=== PATIENT | male | born 1975 | race Caucasian/White ===

== ENCOUNTER 2018-01-30 14:25 | Emergency (ER) | payer OTHER ==
[2018-01-30 14:49] VITALS: BMI 23.6
--- NOTE | 2018-01-30 14:49 | PDOC ---
Rapid Medical Evaluation Time Seen by Provider: 01/30/18 14:43 Medical Evaluation: Allergies Allergy/AdvReac Type Severity Reaction Status Date / Time No Known Allergies Allergy Verified 12/18/15 21:50 01/30/18 14:44 Pt presents to the ED with one episode of BRBPR approximately one hour ago. Pt states he was straining to use the restroom earlier today. Admits to generalized abdominal pain, rectal discomfort. Pt states he last had a normal bowel movement yesterday. Admits to nausea. Denies fevers, chills, vomiting, diarrhea, hx of hemorrohoids Exam: Ambulatory, AAOx3, breathing easily Orders: CBC, CMP, UA, PT/INR, Type & Screen, UC Pt to proceed to ED for further evaluation Discharge Disposition - Diagnosis Blood in stool - Referrals - Patient Instructions - Post Discharge Activity
--- NOTE | 2018-01-30 15:03 | PDOC ---
History of Present Illness - General Chief Complaint: Rectal Bleed Stated Complaint: STOMACH PAIN Time Seen by Provider: 01/30/18 14:43 History Source: Patient Exam Limitations: No Limitations - History of Present Illness Initial Comments: CHIEF COMPLAINT: 42 y/o male c/o rectal bleeding today. HISTORY OF PRESENT ILLNESS: Patient does admit to having multiple bowel movements today and straining. He thinks there was blood in the stool and around it. He states there was no blood on the toilet paper. He denies all other symptoms and has never had hemorrhoids. Vital signs on arrival are within normal limits. REVIEW OF SYSTEMS: GENERAL/CONSTITUTIONAL: No fever/chills. No weakness. No weight change. GASTROINTESTINAL: +rectal bleeding today. +straining to have a bowel movement. +abdominal discomfort. No nausea, vomiting, history of hemorrhoids. GENITOURINARY: No dysuria, frequency, or change in urination. MUSCULOSKELETAL: No joint or muscle swelling or pain. No neck or back pain. SKIN: No rash or easy bruising. NEUROLOGIC: No headache, vertigo, loss of consciousness, or loss of sensation. PHYSICAL EXAM: GENERAL: The patient is awake, alert, and fully oriented, in no acute distress. ABDOMEN: Soft, non-distended, non-tender even to deep palpation, no hepatomegaly or splenomegaly, no masses. RECTUM: No visible hemorrhoids. EXTREMITIES: Normal range of motion, no edema. NEUROLOGICAL: Normal speech, normal gait. CN II-XII grossly intact. SKIN: Warm, dry, normal turgor, no rashes or lesions noted. Past History - Past Medical History Allergies/Adverse Reactions: Allergies Allergy/AdvReac Type Severity Reaction Status Date / Time No Known Allergies Allergy Verified 01/30/18 14:46 Home Medications: Ambulatory Orders NK [No Known Home Medication] 01/30/18 - Immunization History Td Vaccination: No TDAP Vaccination: No Immunization Up to Date: Yes - Suicide/Smoking/Psychosocial Hx Smoking Status: No Smoking History: Never smoked Have you smoked in the past 12 months: No Number of Cigarettes Smoked Daily: 0 Hx Alcohol Use: No Drug/Substance Use Hx: Yes (socila marijuana) Substance Use Type: None *Physical Exam - Vital Signs Last Vital Signs Temp Pulse Resp BP Pulse Ox 99 F 88 16 122/83 99 01/30/18 14:46 01/30/18 14:46 01/30/18 14:46 01/30/18 14:46 01/30/18 14:46 Medical Decision Making - Medical Decision Making A/P: 42 y/o male with 2 episodes of rectal bleeding today. No visible hemorrhoids. Will send to main ER for full work up. *DC/Admit/Observation/Transfer Diagnosis at time of Disposition: Blood in stool - Referrals - Patient Instructions - Post Discharge Activity
[2018-01-30 15:28] LABS: BASO % 1.2 % (0-2.0); EOS % 2.4 % (0-4.5); HEMATOCRIT 43.1 % (35.4-49); HEMOGLOBIN 14.8 GM/dL (11.7-16.9); LYMPH % 20.6 % (8-40); MCH 30.9 pg (25.7-33.7); MCHC 34.3 g/dl (32.0-35.9); MEAN CELL VOLUME 90.2 fl (80-96); MONO % 6.1 % (3.8-10.2); NEUT % 69.7 % (42.8-82.8); PLATELET COUNT 468 K/MM3 (134-434); RBC 4.78 M/mm3 (4.00-5.60); RDW 12.5 % (11.9-15.9); WHITE BLOOD COUNT 10.7 K/mm3 (4.0-10.0)
[2018-01-30 15:40] LABS: URINE APPEARANCE CLEAR; URINE BILIRUBIN NEGATIVE (<2.0 mg/dL); URINE COLOR YELLOW; URINE GLUCOSE (UA) NEGATIVE (NEGATIVE); URINE KETONE NEGATIVE (NEGATIVE); URINE LEUK ESTERASE NEGATIVE (NEGATIVE); URINE NITRITE NEGATIVE (NEGATIVE); URINE PROTEIN NEGATIVE (NEGATIVE); URINE UROBILINOGEN NEGATIVE mg/dL (0.2-1.0)
[2018-01-30 15:44] LABS: INR 0.98 (0.82-1.09); PROTHROMBIN TIME (PATIENT) 11.1 SEC (9.7-13.0)
[2018-01-30 15:56] LABS: ALBUMIN 3.8 g/dl (3.4-5.0); ALK PHOS 79 U/L (45-117); ANION GAP 7 (8-16); BILIRUBIN,TOTAL 0.2 mg/dL (0.2-1.0); BLOOD UREA NITROGEN 25 mg/dL (7-18); CALCIUM 9.3 mg/dL (8.5-10.1); CHLORIDE 109 mmol/L (98-107); CO2 25 mmol/L (21-32); GLUCOSE,RANDOM 95 mg/dL (74-106); POTASSIUM 4.4 mmol/L (3.5-5.1); SGOT/AST 11 U/L (15-37); SGPT/ALT 24 U/L (12-78); SODIUM 141 mmol/L (136-145); TOT PROT 7.4 g/dl (6.4-8.2)
--- NOTE | 2018-01-30 18:23 | PDOC ---
Attending Attestation - Resident Resident Name: NettaBib hammonds - ED Attending Attestation I have performed the following: I have examined & evaluated the patient, The case was reviewed & discussed with the resident, I agree w/resident's findings & plan, Exceptions are as noted - HPI HPI: 01/30/18 18:22 42 year old male with history of lyme's disease p/w 3 episodes of loose stools, with one episode of painless bright red blood per rectum. The patient stated that he ate some hot dogs, grilled chicken and lori. Stated that today, he started to feel a couple of bowel movements that were initially normal. He had strained and pushed and his last episode was painless bloody. First time episode and never had a colonoscopy. He denies family history of colon cancer. Initially, he had some lower abdominal discomfort, but denies abdominal pain. Denies nausea, vomiting, fever, dysuria. Patient was concerned as this was his first time episode. - Physicial Exam PE: 01/30/18 19:14 GENERAL: Awake, alert, and fully oriented, in no acute distress HEAD: No signs of trauma EYES: EOMI, sclera anicteric, conjunctiva clear ENT: Auricles normal inspection, hearing grossly normal, nares patent NECK: Normal ROM, supple ABDOMEN: Soft, nontender. No guarding, no rebound. No masses RECTAL: as per resident EXTREMITIES: Normal range of motion, no edema. No clubbing or cyanosis. No cords, erythema, or tenderness NEUROLOGICAL: Cranial nerves II through XII grossly intact. Normal speech, normal gait SKIN: Warm, Dry, normal turgor, no rashes or lesions noted. - Medical Decision Making 01/30/18 18:23 Vital Signs Temp Pulse Resp BP Pulse Ox 99 F 88 16 122/83 99 01/30/18 14:46 01/30/18 14:46 01/30/18 14:46 01/30/18 14:46 01/30/18 14:46 I suspect that the patient may have internal hemorrhoids. However, differential includes bleeding diverticula, malignancy, colitis. Will obtain labs, and CT scan of abdomen and pelvis. I advised the patient that he will require a colonoscopy either as an inpatient or outpatient as findings such as malignancy will need to be evaluated. Pt verbalizes understanding and agrees with plan. If the workup is unremarkable, and the patient has no more further bleeding, pt is eligible for outpatient GI follow up. Pt signed out to Dr. Rodriguez for further management and disposition.
[2018-01-30 18:44] VITALS: BP 112/78; PULSE 70; TEMP 97.8
--- NOTE | 2018-01-30 19:25 | PDOC ---
History of Present Illness - General Chief Complaint: Rectal Bleed Stated Complaint: STOMACH PAIN Time Seen by Provider: 01/30/18 14:43 History Source: Patient Exam Limitations: No Limitations - History of Present Illness Initial Comments: 01/30/18 19:32 42 yo male PMH insignificant presents to ED after 1 episode of rectal bleeding with bowel movement at 2pm today and 4 episodes of loose stools. Pt admits to eating non refrigerated grilled chicken and lori yesterday afternoon. Pt states he had 20 min of right and left lower quadrant abdominal pain which subsided after defecation. Gross blood was noted in the toilet. Patient denies n/v/f/c chest pain, SOB, abdominal pain or changes in urinary habits. Timing/Duration: 4-6 hours Past History - Past Medical History Allergies/Adverse Reactions: Allergies Allergy/AdvReac Type Severity Reaction Status Date / Time No Known Allergies Allergy Verified 01/30/18 14:46 Home Medications: Ambulatory Orders NK [No Known Home Medication] 01/30/18 COPD: No HTN: No Kidney Stones: No Psychiatric Problems: No Lung CA: No - Surgical History Appendectomy: No Cardiac Surgery: No Cholecystectomy: No - Immunization History Td Vaccination: No TDAP Vaccination: No Immunization Up to Date: Yes - Suicide/Smoking/Psychosocial Hx Smoking Status: No Smoking History: Never smoked Have you smoked in the past 12 months: No Number of Cigarettes Smoked Daily: 0 Information on smoking cessation initiated: No Hx Alcohol Use: No Drug/Substance Use Hx: Yes (socila marijuana) Substance Use Type: None Review of Systems - Review of Systems Constitutional: No: Chills, Diaphoresis, Fever, Weakness Respiratory: No: Shortness of Breath Cardiac (ROS): No: Chest Pain, Edema, Irregular Heart Rate ABD/GI: Yes: Blood Streaked Bowels, Diarrhea (4 episodes today), Other. No: Abdominal Distended, Abd. Pain w/ defecation, Constipated, Nausea, Vomiting : No: Burning, Dysuria, Discharge, Frequency, Flank Pain, Hematuria Musculoskeletal: No: Muscle Weakness Integumentary: No: Bruising Neurological: No: Headache, Numbness, Paresthesia, Weakness Hematologic/Lymphatic: No: Anemia *Physical Exam - Vital Signs Last Vital Signs Temp Pulse Resp BP Pulse Ox 97.8 F 70 16 112/78 99 01/30/18 18:43 01/30/18 18:43 01/30/18 18:43 01/30/18 18:43 01/30/18 14:46 - Physical Exam General Appearance: Yes: Nourished, Appropriately Dressed. No: Apparent Distress HEENT: positive: EOMI Neck: negative: Carotid bruit Respiratory/Chest: positive: Lungs Clear, Normal Breath Sounds. negative: Crackles, Rales, Rhonchi, Stridor, Wheezing Cardiovascular: positive: Regular Rhythm, Regular Rate, S1, S2. negative: Edema , JVD, Murmur Vascular Pulses: Carotid (R): 4+, Carotid (L): 4+, Dorsalis-Pedis (R): 4+, Doralis-Pedis (L): 4+ Gastrointestinal/Abdominal: positive: Normal Bowel Sounds, Soft. negative: Tender, Pulsatile Mass, Increased Bowel Sounds, Protuberent, Distended, Guarding , Rebound, Tenderness, Mass Rectal Exam: positive: heme negative stool, normal exam, normal rectal tone. negative: hemorrhoids Extremity: positive: Normal Capillary Refill Integumentary: positive: Normal Color, Dry, Warm. negative: Cyanotic Neurologic: positive: Fully Oriented, Alert, Normal Mood/Affect, Normal Response , Motor Strength /5 ED Treatment Course - LABORATORY CBC & Chemistry Diagram: 01/30/18 15:14 01/30/18 15:14 - ADDITIONAL ORDERS Additional order review: Laboratory Results 01/30/18 01/30/18 01/30/18 18:17 15:14 15:14 PT with INR INR Sodium 141 Potassium 4.4 Chloride 109 H Carbon Dioxide 25 Anion Gap 7 L BUN 25 H Creatinine 1.0 Creat Clearance w eGFR > 60 Random Glucose 95 Calcium 9.3 Total Bilirubin 0.2 AST 11 L ALT 24 Alkaline Phosphatase 79 Total Protein 7.4 Albumin 3.8 Urine Color Yellow Urine Appearance Clear Urine pH 5.0 Ur Specific [place] 1.029 Urine Protein Negative Urine Glucose (UA) Negative Urine Ketones Negative Urine Blood Negative Urine Nitrite Negative Urine Bilirubin Negative Urine Urobilinogen Negative Ur Leukocyte Esterase Negative Stool Occult Blood Negative Blood Type Antibody Screen 01/30/18 01/30/18 15:14 15:10 PT with INR 11.10 INR 0.98 Sodium Potassium Chloride Carbon Dioxide Anion Gap BUN Creatinine Creat Clearance w eGFR Random Glucose Calcium Total Bilirubin AST ALT Alkaline Phosphatase Total Protein Albumin Urine Color Urine Appearance Urine pH Ur Specific [place] Urine Protein Urine Glucose (UA) Urine Ketones Urine Blood Urine Nitrite Urine Bilirubin Urine Urobilinogen Ur Leukocyte Esterase Stool Occult Blood Blood Type O POSITIVE Antibody Screen Negative 01/30/18 15:14 RBC 4.78 MCV 90.2 MCHC 34.3 RDW 12.5 MPV 7.0 L Neutrophils % 69.7 Lymphocytes % 20.6 Monocytes % 6.1 Eosinophils % 2.4 Basophils % 1.2 - RADIOLOGY Radiology Studies Ordered: Category Date Time Status ABDOMEN & PELVIS CT WITH CONTR [CT] Stat CT Scan 01/30/18 19:01 Ordered CHEST PA & LAT [RAD] Stat Radiology 01/30/18 17:29 Ordered Medical Decision Making - Medical Decision Making 01/30/18 19:41 42 yo male presents to ED after 1 episode of blood on defecation. Abdominal exam is negative. DDx includes but is not limited to: internal hemorrhoids, diverticulitis/diverticulosis and colon cancer. No family hx or specific risk factors of colon cancer. CBC, CMP, UA negative Abdomen and pelvis CT with IV and PO contrast ordered. Follow up with Dr. Whipple for colonoscopy recommended as outpatient if CT scan is negative. Sign out to Dr. Mcconnell *DC/Admit/Observation/Transfer Diagnosis at time of Disposition: Blood in stool - Referrals Referrals: Kieran Whipple DO [Staff Physician] - - Patient Instructions Printed Discharge Instructions: DI for Rectal Bleeding, DI for Hemorrhoids Additional Instructions: Please follow up with Gastroenterology for colonoscopy. The colonoscopy will help differentiate causes of rectal bleed such as but not limited to internal hemorrhoids, diverticulitis or cancer. Please return to the ER for worsening s - Post Discharge Activity
--- NOTE | 2018-01-30 20:00 | PDOC ---
*Physical Exam - Vital Signs Last Vital Signs Temp Pulse Resp BP Pulse Ox 97.8 F 70 16 112/78 99 01/30/18 18:43 01/30/18 18:43 01/30/18 18:43 01/30/18 18:43 01/30/18 14:46 ED Treatment Course - LABORATORY CBC & Chemistry Diagram: 01/30/18 15:14 01/30/18 15:14 - ADDITIONAL ORDERS Additional order review: Laboratory Results 01/30/18 01/30/18 01/30/18 18:17 15:14 15:14 PT with INR INR Sodium 141 Potassium 4.4 Chloride 109 H Carbon Dioxide 25 Anion Gap 7 L BUN 25 H Creatinine 1.0 Creat Clearance w eGFR > 60 Random Glucose 95 Calcium 9.3 Total Bilirubin 0.2 AST 11 L ALT 24 Alkaline Phosphatase 79 Total Protein 7.4 Albumin 3.8 Urine Color Yellow Urine Appearance Clear Urine pH 5.0 Ur Specific [place] 1.029 Urine Protein Negative Urine Glucose (UA) Negative Urine Ketones Negative Urine Blood Negative Urine Nitrite Negative Urine Bilirubin Negative Urine Urobilinogen Negative Ur Leukocyte Esterase Negative Stool Occult Blood Negative Blood Type Antibody Screen 01/30/18 01/30/18 15:14 15:10 PT with INR 11.10 INR 0.98 Sodium Potassium Chloride Carbon Dioxide Anion Gap BUN Creatinine Creat Clearance w eGFR Random Glucose Calcium Total Bilirubin AST ALT Alkaline Phosphatase Total Protein Albumin Urine Color Urine Appearance Urine pH Ur Specific [place] Urine Protein Urine Glucose (UA) Urine Ketones Urine Blood Urine Nitrite Urine Bilirubin Urine Urobilinogen Ur Leukocyte Esterase Stool Occult Blood Blood Type O POSITIVE Antibody Screen Negative 01/30/18 15:14 RBC 4.78 MCV 90.2 MCHC 34.3 RDW 12.5 MPV 7.0 L Neutrophils % 69.7 Lymphocytes % 20.6 Monocytes % 6.1 Eosinophils % 2.4 Basophils % 1.2 Medical Decision Making - Medical Decision Making Signed out by Dr. Mcneal. Pt stable, awaiting CT results for pt discharge to home. 01/30/18 20:00 Pt comfortable, denying any abdominal pain or rectal bleeding at this time. Advised to follow-up with PCP and Dr. Grant for outpatient colonoscopy. Pt agreeable to plan with return precautions given. CT showed few, mild mesenteric lymph nodes enlarged. No bowel obstruction or perforations noted. 01/30/18 22:30 *DC/Admit/Observation/Transfer Diagnosis at time of Disposition: Blood in stool - Discharge Dispostion Disposition: HOME Condition at time of disposition: Improved Decision to Admit order: No - Referrals Referrals: Kieran Feliz DO [Staff Physician] - Joselyn Carrillo MD [Primary Care Provider] - - Patient Instructions Printed Discharge Instructions: DI for Hemorrhoids, DI for Rectal Bleeding Additional Instructions: Please follow up with Gastroenterology for colonoscopy. The colonoscopy will help differentiate causes of rectal bleed such as but not limited to internal hemorrhoids, diverticulitis or cancer. Please return to the ER for worsening s - Post Discharge Activity
--- NOTE | 2018-01-30 21:24 | PDOC ---
*Physical Exam - Vital Signs Last Vital Signs Temp Pulse Resp BP Pulse Ox 97.8 F 70 16 112/78 99 01/30/18 18:43 01/30/18 18:43 01/30/18 18:43 01/30/18 18:43 01/30/18 14:46 ED Treatment Course - LABORATORY CBC & Chemistry Diagram: 01/30/18 15:14 01/30/18 15:14 - ADDITIONAL ORDERS Additional order review: Laboratory Results 01/30/18 01/30/18 01/30/18 18:17 15:14 15:14 PT with INR INR Sodium 141 Potassium 4.4 Chloride 109 H Carbon Dioxide 25 Anion Gap 7 L BUN 25 H Creatinine 1.0 Creat Clearance w eGFR > 60 Random Glucose 95 Calcium 9.3 Total Bilirubin 0.2 AST 11 L ALT 24 Alkaline Phosphatase 79 Total Protein 7.4 Albumin 3.8 Urine Color Yellow Urine Appearance Clear Urine pH 5.0 Ur Specific [place] 1.029 Urine Protein Negative Urine Glucose (UA) Negative Urine Ketones Negative Urine Blood Negative Urine Nitrite Negative Urine Bilirubin Negative Urine Urobilinogen Negative Ur Leukocyte Esterase Negative Stool Occult Blood Negative Blood Type Antibody Screen 01/30/18 01/30/18 15:14 15:10 PT with INR 11.10 INR 0.98 Sodium Potassium Chloride Carbon Dioxide Anion Gap BUN Creatinine Creat Clearance w eGFR Random Glucose Calcium Total Bilirubin AST ALT Alkaline Phosphatase Total Protein Albumin Urine Color Urine Appearance Urine pH Ur Specific [place] Urine Protein Urine Glucose (UA) Urine Ketones Urine Blood Urine Nitrite Urine Bilirubin Urine Urobilinogen Ur Leukocyte Esterase Stool Occult Blood Blood Type O POSITIVE Antibody Screen Negative 01/30/18 15:14 RBC 4.78 MCV 90.2 MCHC 34.3 RDW 12.5 MPV 7.0 L Neutrophils % 69.7 Lymphocytes % 20.6 Monocytes % 6.1 Eosinophils % 2.4 Basophils % 1.2 Medical Decision Making - Medical Decision Making 01/30/18 21:21 I received pt on signout. He came with rectal bleeding. Tells me he just went to the bathroom and saw some blood when he wiped. Pt has no fever and no chills ; no epigastric pain. He has minimal lower abd pain. he has no fam hx of GI problems. Pt doesn't report constipation. 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 Pt appears well. Abd is soft. He will be going for an oral contrast CT scan in 15 min. He understands that if the CT scan is normal, he will be referred to GI as an outpatient. 01/30/18 22:28 Pt has nonspecific enlarged lymph nodes on CT scan. He will be asked to follow with his PMD Jennifer, as well as with GI specialist plant floor automation manager Dr. Feliz. He will be provided with a CT scan reading. He has been asked to follow every 3 mos for repeat imaging. *DC/Admit/Observation/Transfer Diagnosis at time of Disposition: Blood in stool - Referrals Referrals: Kieran Feliz DO [Staff Physician] - - Patient Instructions Printed Discharge Instructions: DI for Hemorrhoids, DI for Rectal Bleeding Additional Instructions: Please follow up with Gastroenterology for colonoscopy. The colonoscopy will help differentiate causes of rectal bleed such as but not limited to internal hemorrhoids, diverticulitis or cancer. Please return to the ER for worsening s - Post Discharge Activity
== END 2018-01-30 22:43 | disposition home or self-care (01) ==
LOC: JER 14:25
DX: K92.1 Melena (principal)
CPT/HCPCS: 36415; 71046-TC-FY; 74177-TC; 80053; 81003; 82272; 85025; 85610; 86850; 86900; 86901; 87086; 99284-25

== ENCOUNTER 2019-03-26 23:29 | Emergency (ER) | payer OTHER ==
[2019-03-26 23:40] VITALS: TEMP 98; BMI 24.3
--- NOTE | 2019-03-27 00:34 | PDOC ---
Attending Attestation - Resident Resident Name: Bib Mcneal - ED Attending Attestation I have performed the following: I have examined & evaluated the patient, The case was reviewed & discussed with the resident, I agree w/resident's findings & plan - HPI HPI: 03/27/19 05:44 Pt comes with abdominal pain. - Physicial Exam PE: 03/27/19 05:44 Agree with resident exam. - Medical Decision Making 03/27/19 03:58 Patient Name: TIMMY MACKEY THIS IS A PRELIMINARY REPORT FROM [facility] [employer] DATE OF SERVICE: 2019-03-27 02:59:12 IMAGES: [id number] EXAM: ABDOMEN \T\ PELVIS CT WITH CONTR HISTORY: Diffuse abdominal pain COMPARISON: None. FINDINGS: A few small hepatic cysts No gallstones No evidence of renal calculi or obstructive uropathy Normal appendix No evidence of intestinal obstruction, perforation, colitis, pancreatitis, acute diverticular disease, or an intra-abdominal or pelvic abscess No free fluid Small fat-containing bilateral inguinal hernias IMPRESSION: 1. No acute intra-abdominal or pelvic findings 03/27/19 05:[address] abd/pelvis. Pt will follow with his PMD as needed.He is stable for discharge and he is feeling better.
[2019-03-27 01:00] LABS: BASO % 0.7 % (0-2.0); EOS % 0.3 % (0-4.5); HEMATOCRIT 42.3 % (35.4-49); HEMOGLOBIN 14.1 GM/dL (11.7-16.9); LYMPH % 9.5 % (8-40); MCH 30.7 pg (25.7-33.7); MCHC 33.2 g/dl (32.0-35.9); MEAN CELL VOLUME 92.4 fl (80-96); MEAN PLT VOLUME 7.1 fl (7.5-11.1); MONO % 3.7 % (3.8-10.2); NEUT % 85.8 % (42.8-82.8); PLATELET COUNT 407 K/MM3 (134-434); RBC 4.58 M/mm3 (4.00-5.60); RDW 12.7 % (11.9-15.9); WHITE BLOOD COUNT 17.1 K/mm3 (4.0-10.0)
--- NOTE | 2019-03-27 01:05 | PDOC ---
History of Present Illness - General Chief Complaint: Pain, Acute Stated Complaint: ABD/PAIN/VOMITTING/NAUSEA Time Seen by Provider: 03/26/19 23:58 History Source: Patient Exam Limitations: No Limitations - History of Present Illness Initial Comments: 03/27/19 00:38 43 yo male pmh of lymes disease presents to the ED for sudden onset diffuse abdominal pain. 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 Quality and intensity of abdominal pain similar to past episodes however the vomiting has never occured which was concerning for the patient. Pt also admits to feeling flushed and had generalized weakness sfor a couple min after episode. All symptoms have resolved and pt is at baseline health with no abdominal pain, denies back pain, changes in bowel or bladder habits, Past History - Past Medical History Allergies/Adverse Reactions: Allergies Allergy/AdvReac Type Severity Reaction Status Date / Time No Known Allergies Allergy Verified 03/27/19 00:31 Home Medications: Ambulatory Orders NK [No Known Home Medication] 01/30/18 COPD: No HTN: No Kidney Stones: No Psychiatric Problems: No Lung CA: No - Surgical History Appendectomy: No Cardiac Surgery: No Cholecystectomy: No - Immunization History Td Vaccination: No TDAP Vaccination: No Immunization Up to Date: Yes - Suicide/Smoking/Psychosocial Hx Smoking Status: No Smoking History: Never smoked Have you smoked in the past 12 months: No Number of Cigarettes Smoked Daily: 0 Information on smoking cessation initiated: No Hx Alcohol Use: No Drug/Substance Use Hx: No Substance Use Type: None Review of Systems - Review of Systems Constitutional: Yes: See HPI HEENTM: Yes: See HPI Respiratory: Yes: See HPI Cardiac (ROS): Yes: See HPI : Yes: See HPI Musculoskeletal: Yes: See HPI Integumentary: Yes: See HPI Neurological: Yes: See HPI *Physical Exam - Vital Signs Last Vital Signs Temp Pulse Resp BP Pulse Ox 98.0 F 79 20 136/91 100 03/26/19 23:37 03/26/19 23:37 03/26/19 23:37 03/26/19 23:37 09/13/19 23:37 - Physical Exam General Appearance: Yes: Nourished, Appropriately Dressed. No: Apparent Distress HEENT: positive: EOMI Neck: positive: Supple. negative: Carotid bruit Respiratory/Chest: positive: Lungs Clear, Normal Breath Sounds. negative: Respiratory Distress, Crackles, Rales, Rhonchi, Stridor, Wheezing Cardiovascular: positive: Regular Rhythm, Regular Rate, S1, S2. negative: Edema , JVD, Murmur Vascular Pulses: Dorsalis-Pedis (R): 4+, Doralis-Pedis (L): 4+ Gastrointestinal/Abdominal: positive: Flat, Soft, Tenderness (mild RLQ tenderness). negative: Pulsatile Mass, Protuberent, Distended, Guarding, Rebound Musculoskeletal: negative: CVA Tenderness Extremity: positive: Normal Capillary Refill, Normal Inspection Integumentary: positive: Normal Color, Dry, Warm Neurologic: positive: Fully Oriented, Alert, Normal Mood/Affect, Normal Response ED Treatment Course - LABORATORY CBC & Chemistry Diagram: 03/27/19 00:49 03/27/19 00:49 Medical Decision Making - Medical Decision Making 03/27/19 04:14 43 yo male pmh of lymes disease presents to the ED for sudden onset diffuse abdominal pain. 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 Quality and intensity of abdominal pain similar to past episodes however the vomiting has never occured which was concerning for the patient. Pt also admits to feeling flushed and had generalized weakness sfor a couple min after episode. All symptoms have resolved and pt is at baseline health with no abdominal pain, denies back pain, changes in bowel or bladder habits, vitals wnl Pt appears comfortable, abdominal exam shows mild RLQ tenderness WBC elevated to 17, with CT AP with con to r/o appy vs acute path neg CT scan Pt states he feels well, pain self resolved, able to eat and drink in the ED without N/V pt safe for DC home with strict return precautions for early appy and GI f/u *DC/Admit/Observation/Transfer Diagnosis at time of Disposition: Abdominal pain - Discharge Dispostion Disposition: HOME Condition at time of disposition: Stable Decision to Admit order: No - Referrals Referrals: Kieran Feliz DO [Staff Physician] - - Patient Instructions Printed Discharge Instructions: DI for Abdominal Pain-Adult Additional Instructions: Please see your primary doctor within the next 48 hours. Make an appointment and see the GI doctor as soon as possible. Make sure to eat and drink at home. Return to the ER for new or concerning symptoms including but not limited to: abdominal pain, fevers, inability to eat or drink. Thank you - Post Discharge Activity
[2019-03-27 01:26] LABS: ALBUMIN 4.1 g/dl (3.4-5.0); BILIRUBIN,TOTAL 0.2 mg/dL (0.2-1); BLOOD UREA NITROGEN 25.7 mg/dL (7-18); CALCIUM 9.3 mg/dL (8.5-10.1); POTASSIUM 3.9 mmol/L (3.5-5.1); TOT PROT 7.3 g/dl (6.4-8.2)
[2019-03-27 04:03] VITALS: BP 120/78; PULSE 80
[2019-03-27 04:04] LABS: URINE APPEARANCE CLEAR; URINE BILIRUBIN NEGATIVE (NEGATIVE); URINE COLOR YELLOW; URINE GLUCOSE (UA) NEGATIVE (NEGATIVE); URINE KETONE 15 mg/dl (NEGATIVE)
[2019-03-27 04:05] LABS: URINE PROTEIN NEGATIVE (NEGATIVE)
[2019-03-27 04:06] LABS: URINE LEUK ESTERASE NEGATIVE (NEGATIVE); URINE NITRITE NEGATIVE (NEGATIVE); URINE UROBILINOGEN 0.2 mg/dL (0.2-1.0)
== END 2019-03-27 05:09 | disposition home or self-care (01) ==
LOC: JER 23:29
DX: R10.9 Unspecified abdominal pain (principal)
CPT/HCPCS: 36415; 71045-TC-FY; 74177-TC; 80053; 81003; 83690; 85025; 87086; 99283-25

== ENCOUNTER 2022-11-16 00:12 | Emergency (ER) | payer OTHER ==
[2022-11-16 00:23] VITALS: BP 134/86; RESP 18; TEMP 99.5; BMI 25.0
[2022-11-16] MEDS ORDERED: ACETAMINOPHEN 325 MG TABLET (FP) PO ONE (01:02)
[2022-11-16] MEDS ORDERED: ACETAMINOPHEN 325 MG TABLET (FP) ONE (01:07)
[2022-11-16 01:35] VITALS: PULSE 89
== END 2022-11-16 02:25 | disposition home or self-care (01) ==
LOC: JER 00:12
DX: R07.0 Pain in throat (principal); R13.10 Dysphagia, unspecified; J02.0 Streptococcal pharyngitis; R00.0 Tachycardia, unspecified
CPT/HCPCS: 87651; 99283-25

== ENCOUNTER 2023-06-14 11:16 | Emergency (ER) | payer OTHER ==
[2023-06-14 11:36] VITALS: RESP 18; TEMP 98; BMI 25.8
[2023-06-14 13:16] LABS: BASO % 0.8 % (0-2.0); EOS % 1.6 % (0-4.5); HEMATOCRIT 40.1 % (35.4-49); HEMOGLOBIN 13.6 GM/dL (11.7-16.9); LYMPH % 26.8 % (8-40); MCH 30.8 pg (25.7-33.7); MEAN CELL VOLUME 90.4 fl (80-96); MONO % 6.1 % (3.8-10.2); NEUT % 64.7 % (42.8-82.8); PLATELET COUNT 480 10^3/uL (134-434); RBC 4.43 M/mm3 (4.00-5.60); RDW 12.7 % (11.9-15.9); WHITE BLOOD COUNT 9.5 K/mm3 (4.0-10.0)
[2023-06-14 13:25] LABS: INR 0.97 (0.83-1.09); PROTHROMBIN TIME (PATIENT) 11.2 SEC (9.7-13.0)
[2023-06-14 13:28] LABS: ACTIVATED PTT 29.6 SECONDS (25.2-36.5)
[2023-06-14 13:55] LABS: POTASSIUM 4.2 mmol/L (3.5-5.1)
[2023-06-14 13:57] LABS: CALCIUM 9.3 mg/dL (8.5-10.1)
[2023-06-14 13:58] LABS: ALBUMIN 3.7 g/dl (3.4-5.0); BLOOD UREA NITROGEN 16.4 mg/dL (7-18)
[2023-06-14 14:01] LABS: CREATININE 0.9 mg/dL (0.55-1.3)
[2023-06-14 14:02] LABS: TOT PROT 6.9 g/dl (6.4-8.2)
[2023-06-14 14:03] LABS: BILIRUBIN,TOTAL 0.4 mg/dL (0.2-1)
[2023-06-14 15:10] VITALS: BP 130/89; PULSE 74
== END 2023-06-14 15:10 | disposition home or self-care (01) ==
LOC: JER 11:16
DX: R07.89 Other chest pain (principal); R06.02 Shortness of breath; R42 Dizziness and giddiness; F41.0 Panic disorder [episodic paroxysmal anxiety]; Z20.822 Contact with and (suspected) exposure to COVID-19
CPT/HCPCS: 0241U-QW; 36415; 71045-TC-FY; 80053; 84484; 85025; 85610; 85730; 93005; 93010; 99285-25

== ENCOUNTER 2023-11-03 08:11 | Emergency (ER) | payer OTHER ==
[2023-11-03 08:38] VITALS: BP 120/81; PULSE 78; RESP 17; TEMP 98.6; BMI 24.3
[2023-11-03] MEDS ORDERED: IBUPROFEN 400 MG TABLET (FP) PO ONE (08:55)
[2023-11-03] MEDS ORDERED: LIDOCAINE 4% PATCH TP ONE (08:56)
[2023-11-03] MEDS: IBUPROFEN 400 MG TABLET (FP) PO ONE (09:04)
[2023-11-03] MEDS: LIDOCAINE 4% PATCH TP ONE (09:56)
[2023-11-03] MEDS: LIDOCAINE 5% TOPICAL PATCH TP ONE (09:57)
[2023-11-03] MEDS ORDERED: LIDOCAINE PATCH REMOVAL MC ONE ×2 (22:00)
== END 2023-11-03 10:29 | disposition home or self-care (01) ==
LOC: JER 08:11
DX: R07.89 Other chest pain (principal)
CPT/HCPCS: 71046-TC-FY; 93005; 93010; 99284-25

== ENCOUNTER 2023-12-23 08:56 | Emergency (ER) | payer OTHER ==
[2023-12-23 09:10] VITALS: RESP 18; BMI 24.3
[2023-12-23] MEDS ORDERED: ACETAMINOPHEN 500 MG TABLET (FP) ONE (10:09)
[2023-12-23] MEDS: ACETAMINOPHEN 500 MG TABLET (FP) PO ONE (10:19)
[2023-12-23 11:42] LABS: BASO % 1.1 % (0-2.0); EOS % 0.3 % (0-4.5); HEMATOCRIT 40.2 % (35.4-49); HEMOGLOBIN 13.6 GM/dL (11.7-16.9); LYMPH % 16.4 % (8-40); MCH 30.5 pg (25.7-33.7); MCHC 33.8 g/dl (32.0-35.9); MEAN CELL VOLUME 90.2 fl (80-96); MEAN PLT VOLUME 6.8 fl (7.5-11.1); MONO % 3.9 % (3.8-10.2); NEUT % 78.3 % (42.8-82.8); PLATELET COUNT 471 10^3/uL (134-434); RBC 4.46 M/mm3 (4.00-5.60); WHITE BLOOD COUNT 10.1 K/mm3 (4.0-10.0)
[2023-12-23 12:00] LABS: POTASSIUM 3.9 mmol/L (3.5-5.1)
[2023-12-23 12:02] LABS: CALCIUM 9.9 mg/dL (8.5-10.1)
[2023-12-23 12:03] LABS: ALBUMIN 3.8 g/dl (3.4-5.0); BLOOD UREA NITROGEN 15.4 mg/dL (7-18)
[2023-12-23 12:06] LABS: CREATININE 1.1 mg/dL (0.55-1.3)
[2023-12-23 12:07] LABS: BILIRUBIN,TOTAL 0.3 mg/dL (0.2-1); TOT PROT 6.8 g/dl (6.4-8.2)
[2023-12-23 12:57] VITALS: BP 135/92; PULSE 79; TEMP 98.5
== END 2023-12-23 13:11 | disposition home or self-care (01) ==
LOC: JER 08:56
DX: R91.1 Solitary pulmonary nodule (principal); K76.89 Other specified diseases of liver; M54.50 Low back pain, unspecified; M54.2 Cervicalgia; M79.602 Pain in left arm; V43.52XA Car driver injured in collision with other type car in traffic accident, initial encounter; Y92.410 Unspecified street and highway as the place of occurrence of the external cause
CPT/HCPCS: 36415; 70450-TC; 71260-TC; 72125-TC; 72131-TC; 73070-TC-LT-FY; 73090-TC-LT-FY; 73110-TC-LT-FY; 73130-TC-LT-FY; 74177-TC; 80053; 85025; 93005; 93010; 99285-25; Q9967

== ENCOUNTER 2024-02-12 05:00 | Day surgery (SDC) | payer OTHER ==
[2024-02-11 09:14] VITALS: BMI 23.9
[2024-02-12] MEDS ORDERED: LIDOCAINE HCL/PF 1% SDV 5ML VIAL ONE (07:27)
[2024-02-12] MEDS ORDERED: DEXAMETHASONE SOD PHOSPHATE 10 MG/1 ML VIAL ONE (07:27)
[2024-02-12 13:26] VITALS: RESP 18
[2024-02-12] MEDS: LIDOCAINE 1% P/F 10 MG/ML VIAL PNB ONE (15:08)
[2024-02-12] MEDS: IOHEXOL 180 MG/1 ML ML IJ ONE (15:08)
[2024-02-12] MEDS: DEXAMETHASONE SOD PHOSPHATE 4 MG/1 ML VIAL IVPUSH ONE (15:11)
[2024-02-12 15:57] VITALS: BP 125/84; PULSE 65; TEMP 97.7
== END 2024-02-12 15:40 | disposition home or self-care (01) ==
LOC: JASU-SURG 05:00
PROVIDERS: ATTEND Pain Medicine Pain Medicine
PROC: 3E0R3BZ Introduction of Anesthetic Agent into Spinal Canal, Percutaneous Approach (ICD-10-PCS; 2024-02-12)
PROC: 3E0R33Z Introduction of Anti-inflammatory into Spinal Canal, Percutaneous Approach (ICD-10-PCS; principal; 2024-02-12 15:15)
DX: M54.16 Radiculopathy, lumbar region (principal)
CPT/HCPCS: 76000-TC-FY; J1100

== ENCOUNTER 2024-06-17 04:46 | Day surgery (SDC) | payer OTHER ==
[2024-06-16 13:46] VITALS: BMI 24.3
[2024-06-17] MEDS ORDERED: LIDOCAINE HCL 1%, 10 MG/ML (20ML VIAL) ONE (07:24)
[2024-06-17] MEDS ORDERED: BUPIVACAINE HCL/PF 0.5% (5MG/ML) 10 ML VIAL ONE (07:24)
[2024-06-17] MEDS ORDERED: LIDOCAINE HCL/PF 1% SDV 5ML VIAL ONE (07:25)
[2024-06-17] MEDS ORDERED: ACETAMINOPHEN 500 MG TABLET (FP) PO PRN (09:11)
[2024-06-17 15:54] VITALS: BP 141/93; PULSE 67; RESP 18; TEMP 98
== END 2024-06-17 15:25 | disposition home or self-care (01) ==
LOC: JASU-SURG 04:46
PROVIDERS: ATTEND Pain Medicine Pain Medicine
PROC: 3E0T33Z Introduction of Anti-inflammatory into Peripheral Nerves and Plexi, Percutaneous Approach (ICD-10-PCS; 2024-06-17)
PROC: 3E0T3BZ Introduction of Anesthetic Agent into Peripheral Nerves and Plexi, Percutaneous Approach (ICD-10-PCS; principal; 2024-06-17 13:00)
DX: M47.812 Spondylosis without myelopathy or radiculopathy, cervical region (principal)
CPT/HCPCS: 76000-TC-FY

== ENCOUNTER 2024-07-16 04:06 | Day surgery (SDC) | payer OTHER ==
[2024-07-09 12:26] VITALS: BMI 24.3
[2024-07-16] MEDS ORDERED: ACETAMINOPHEN 500 MG TABLET (FP) PO PRN (09:06)
[2024-07-16] MEDS: BUPIVACAINE HCL/PF 0.5% (5MG/ML) 10 ML VIAL IJ ONE ×2 (13:39)
[2024-07-16 13:58] VITALS: BP 130/85; PULSE 67; RESP 16; TEMP 97.6
== END 2024-07-16 14:25 | disposition home or self-care (01) ==
LOC: JASU-SURG 04:06
PROVIDERS: ATTEND Pain Medicine Pain Medicine
PROC: 3E0T33Z Introduction of Anti-inflammatory into Peripheral Nerves and Plexi, Percutaneous Approach (ICD-10-PCS; 2024-07-16)
PROC: 3E0T3BZ Introduction of Anesthetic Agent into Peripheral Nerves and Plexi, Percutaneous Approach (ICD-10-PCS; principal; 2024-07-16 14:00)
DX: M47.812 Spondylosis without myelopathy or radiculopathy, cervical region (principal)
CPT/HCPCS: 76000-TC-FY